=== PATIENT | male | born 1950 ===

== ENCOUNTER 2024-06-24 07:43 | Outpatient (OUT) | payer MEDICARE, SELFPAY ==
[2024-06-24 09:15] LABS: INR 0.97; Partial Thromboplastin Time 23.9 sec (22.3-36.2); Prothrombin Time 10.3 sec (9.0-11.6)
[2024-06-24 09:37] LABS: BUN Creatinine Ratio 18.2; Calcium 9.6 mg/dL (8.5-10.1); Carbon Dioxide 25.9 mmol/L (21.0-32.0); Chloride 103 mmol/L (98-107); Estimated GFR (African America 31 (>=60 mL/min/1.73m^2); Estimated GFR (Non-African Ame 26 (>=60 mL/min/1.73m^2); Glucose 96 mg/dL (74-106); Potassium 3.9 mmol/L (3.5-5.1); Sodium 140 mmol/L (136-145)
[2024-06-24 10:38] LABS: Prostate Specific Antigen Dx 5.92 ng/mL (<=4.00)
== END 2024-06-24 07:44 | disposition home or self-care (01) ==
LOC: PST 07:47
PROVIDERS: PCP Family Medicine; Visit Provider Urology
DX: Z01.812 Encounter for preprocedural laboratory examination (principal); N40.1 Benign prostatic hyperplasia with lower urinary tract symptoms; D69.6 Thrombocytopenia, unspecified
CPT/HCPCS: 80048; 84153; 85610; 85730

== ENCOUNTER 2024-07-03 11:58 | Day surgery (SDC) | payer MEDICARE, SELFPAY ==
[2024-06-24 08:53] VITALS: BP 142/83; PULSE 74; TEMP 36.6; O2SAT 100; BMI 32.9
[2024-07-03] VITALS (13 sets, daily range): BP systolic 143–172; BP diastolic 72–94; PULSE 60–79; TEMP 36.3–36.6; O2SAT 94–99; BMI 32.9
[2024-07-03 12:12] LABS: Basophils Absolute Auto 0.1 10^3/uL (0.0-0.1); Eosinophils Absolute Auto 0.2 10^3/uL (0.0-0.7); Eosinophils Percent Auto 2.7 % (0.9-7.0); Hematocrit 34.4 % (42.0-54.0); Hemoglobin 10.6 g/dL (14.0-18.0); Immature Granulocytes Abs Auto 0.06 10^3/uL (0.00-0.03); Lymphocytes Absolute Auto 1.9 10^3/uL (1.2-3.8); Lymphocytes Percent Auto 31.2 % (20.5-60.0); Mean Corpuscular HGB Conc 30.8 g/dL (29.9-35.2); Mean Corpuscular Hemoglobin 31.9 pg (25.9-34.0); Mean Corpuscular Volume 103.6 fL (80.0-94.0); Mean Platelet Volume 9.7 fL (9.5-13.5); Monocytes Absolute Auto 0.7 10^3/uL (0.3-0.8); Monocytes Percent Auto 10.8 % (1.7-12.0); Neutrophils Absolute Auto 3.2 10^3/uL (1.4-6.5); Neutrophils Percent Auto 53.3 % (43.0-75.0); Platelet Count 364 10^3/uL (150-450); Red Blood Count 3.32 10^6/uL (4.70-6.10); Red Cell Distribution Width 14.2 % (11.0-15.0)
[2024-07-03] MEDS: LACTATED RINGER'S SOLUTION 1,000 ML 50 ML IV (13:08)
[2024-07-03] MEDS: LEVOFLOXACIN 500 MG/100 ML-D5W PREMIX 100 MG IV (14:32)
--- NOTE | 2024-07-03 15:53 | PM.URSON ---
Urology Surgery Operative Note Operative Note Procedure Date: 07/03/24 Time Out Performed: yes Pre-op Diagnosis: 1. BPH with LUTS refractory to medications. 2. 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 Cystoscopy. 2. Transurethral resection of prostate Anesthesia: ZAID Primary Surgeon: Reji Rios Complications: None Estimated blood loss (mL): 15 Findings: 1. Very high median lobe with a papillary TCC appearing tumor on the right side of it near the bladder neck. 2. Multiple purulence pockets in the lateral lobes of the prostate Specimens: 1. Prostate chips. 2. Tumor on the median lobe of prostate Drains: 22 [place] three-way coud? Glass catheter taped to traction and CBI Indications for Procedures: This gentleman has BPH with LUTS despite taking oral medications. Endoscopically he was found to have a TCC appearing tumor on the median lobe on his right side near the bladder neck. He is strongly desirous for a TURP. He has signed an informed consent for this operation along with the urethral dilation after all risks were explained. Some of these risks include bleeding, infection, anesthesia, urinary incontinence both temporary and permanent, erectile dysfunction, retrograde ejaculation, possible need for further operations to name a few Detailed description of Procedure: The patient was brought to the operating room and placed on the operating room table in the supine position. SCDs were placed on the lower extremities and turned on and functioning during the entire case. Timeout was done by all parties in the room. We all agreed upon the patient's identification and the planned procedures for this patient. Genn. anesthesia was then administered. The patient was then repositioned into the modified dorsal lithotomy position. All pressure points were satisfactorily padded. Genitalia were sterilely prepped and draped in usual fashion. I started by passing a 26 [place] Olympus resectoscope with a standard bipolar loop electrode per urethra and into the bladder. The ureteral orifices were marked with the loop electrode. I then uniformly resected the median lobe down to the bladder neck level. The tumor noted on the right side near the bladder neck was resected also. The posterior tissue from the bladder neck to the Veru was resected. I then resected the left lateral lobe from the bladder neck to the Veru and the right lateral lobe similarly to the capsular level. Both of the lateral lobes had substantial purulence pockets that were unroofed. The anterior tissue was then taken down in a similar manner. The apex was opened up carefully. I used the vaporization electrode to maintain hemostasis. The Ilich was used to get all of the chips out of the bladder and these were sent for permanent sections. Upon completion, with the scope at the apex the prostatic urethra and bladder neck were now wide open. There was no bleeding. There were no chips in the bladder. The scope was then removed. I then easily passed a 22 [place] three-way coud? Lgass in the bladder. 30 cc of fluid was placed in the balloon. It was manually irrigated. The CBI was started and it was taped to traction. It irrigated pink. The anesthetic was then reversed. He was then transferred to a [facility] bed and wheeled to PACU in stable condition. Urinary Catheter Management Urinary Catheter Management Coude: Cath placed during this visit: no
[2024-07-03] MEDS: SOLIFENACIN SUCCINATE 10 MG TABLET PO (16:18)
[2024-07-03] MEDS: SODIUM CHLORIDE IRRIG SOLUTION 3,000 ML 3000 ML IRR ×9 (17:21→23:39)
[2024-07-03] MEDS: 0.9 % SODIUM CHLORIDE 1,000 ML 80 ML IV (17:24)
[2024-07-03] MEDS: HYDROCODONE/ACET 5-325 MG TABLET 1 TAB PO ×2 (17:25→21:16)
[2024-07-03] MEDS: FUROSEMIDE 40 MG TABLET PO (21:16)
[2024-07-03] MEDS: AMIODARONE HCL 200 MG TABLET PO (21:16)
[2024-07-03] MEDS: TEMAZEPAM 15 MG CAPSULE PO (21:16)
[2024-07-03] MEDS: CEFAZOLIN SODIUM/DEXTROSE,ISO 1 GM/50 ML PREMIX IV (21:17)
[2024-07-04] MEDS: SODIUM CHLORIDE IRRIG SOLUTION 3,000 ML 3000 ML IRR ×5 (00:24→04:49)
[2024-07-04 00:57] VITALS: BP 139/72; PULSE 68; TEMP 36.3; O2SAT 91
[2024-07-04] MEDS: HYDROCODONE/ACET 5-325 MG TABLET 1 TAB PO ×2 (01:30→05:17)
[2024-07-04] MEDS: CEFAZOLIN SODIUM/DEXTROSE,ISO 1 GM/50 ML PREMIX IV (02:49)
[2024-07-04 04:00] VITALS: BP 143/78; PULSE 65; TEMP 36.8; O2SAT 95
[2024-07-04 08:27] VITALS: BP 161/83; PULSE 69; TEMP 36.6; O2SAT 95
[2024-07-04] MEDS: TAMSULOSIN HCL 0.4 MG CAPSULE PO (08:53)
[2024-07-04] MEDS: PANTOPRAZOLE SODIUM 40 MG TABLET.DR 20 MG PO (08:53)
[2024-07-04] MEDS: ATORVASTATIN CALCIUM 40 MG TABLET PO (08:53)
[2024-07-04 08:54] VITALS: BP 129/72; PULSE 70
[2024-07-04] MEDS: AMIODARONE HCL 200 MG TABLET PO (08:54)
[2024-07-04] MEDS: FUROSEMIDE 40 MG TABLET PO (08:54)
[2024-07-04] MEDS: PREDNISONE 5 MG TABLET PO (08:54)
[2024-07-04] MEDS: SOLIFENACIN SUCCINATE 10 MG TABLET PO (08:54)
== END 2024-07-04 10:28 | disposition home or self-care (01) ==
LOC: SURGOUT 15:50 → MS 16:45
PROVIDERS: PCP Family Medicine; Visit Provider Urology
PROC: (CPT 52601; principal; 2024-07-03 13:20)
DX: N40.1 Benign prostatic hyperplasia with lower urinary tract symptoms (principal); R97.20 Elevated prostate specific antigen [PSA]; D69.6 Thrombocytopenia, unspecified; I10 Essential (primary) hypertension; I48.91 Unspecified atrial fibrillation; N35.919 Unspecified urethral stricture, male, unspecified site; Z90.49 Acquired absence of other specified parts of digestive tract; K21.9 Gastro-esophageal reflux disease without esophagitis; Z86.718 Personal history of other venous thrombosis and embolism; R06.09 Other forms of dyspnea
CPT/HCPCS: 52601; 36415; 85025; 96365; J0690; J1100; J1720; J2250; J2405; J2704; J3010; J7512